=== PATIENT | male | born 1985 | race Caucasian/White ===

== ENCOUNTER 2016-12-18 23:08 | Emergency (ER) | payer SELFPAY ==
[2016-12-19 00:05] LABS: Basophils % (Auto) 0.9 % (0.0-1.8); Eosinophils % (Auto) 3.3 % (0.0-4.3); Hematocrit 43.3 % (35.5-45.6); Hemoglobin 15.3 gm/dl (11.8-15.2); Mean Corpuscular HGB Conc 35 % (32-34); Mean Corpuscular Hemoglobin 30 pg (28-32); Mean Corpuscular Volume 84 fl (84-94); Platelet Count 276 K/mm3 (140-440); Red Blood Count 5.13 M/mm3 (3.65-5.03); Red Cell Distribution Width 12.7 % (13.2-15.2); White Blood Count 10.7 K/mm3 (4.5-11.0)
[2016-12-19 00:17] LABS: Alanine Aminotransferase 175 units/L (7-56); Albumin 4.7 g/dL (3.9-5); Albumin/Globulin Ratio 1.3 %; Alkaline Phosphatase 90 units/L (35-129); Amylase 37 units/L (27-131); Anion Gap 22 mmol/L; BUN/Creatinine Ratio 11.11; Blood Urea Nitrogen 10 mg/dL (9-20); Calcium 9.9 mg/dL (8.4-10.2); Carbon Dioxide 22 mmol/L (22-30); Chloride 98.3 mmol/L (98-107); Glucose 165 mg/dL (75-100); Lipase 40 units/L (13-60); Potassium 3.7 mmol/L (3.6-5.0); Sodium 139 mmol/L (137-145); Total Protein 8.2 g/dL (6.3-8.2)
[2016-12-19 00:29] LABS: Bilirubin,Direct < 0.2 mg/dL (0-0.2)
[2016-12-19] MEDS ORDERED: NACL 0.9% 1000 ML 1,000 ML IV ONE (01:22)
[2016-12-19] MEDS ORDERED: TORADOL IV ONE (01:22)
[2016-12-19] MEDS ORDERED: ZOFRAN IV ONE (01:22)
[2016-12-19] MEDS ORDERED: DILAUDID IV ONE (01:22)
--- NOTE | 2016-12-19 01:44 | Emergency Department Report ---
ED Abdominal Pain HPI - General Chief Complaint: Abdominal Pain Stated Complaint: FLANK PAIN,VOMITING Time Seen by Provider: 12/19/16 01:18 Source: EMS Mode of arrival: Ambulatory Limitations: No Limitations - History of Present Illness Initial Comments: 31-year-old male with no significant past medical history presents to the hospital complaining of right flank pain that started at 4 PM. Pain was initially mild and intermittent but then intensified with associated vomiting. Patient complains of some mild discomfort with urination without hematuria. Denies history hypertension and kidney stones. Reports some "liver issues". No previous abdominal surgeries. - Related Data Home Medications Medication Instructions Recorded Confirmed Last Taken Azithromycin [Zithromax TAB] 500 mg PO QDAY 03/27/15 03/27/15 03/27/15 Meloxicam [Mobic] 7.5 mg PO QDAY 03/27/15 03/27/15 03/27/15 Previous Rx's Medication Instructions Recorded Last Taken Type Clindamycin [Clindamycin CAP] 300 mg PO Q8H #30 cap 03/27/15 Unknown Rx Ibuprofen [Motrin] 800 mg PO Q8HR PRN #60 tablet 03/27/15 Unknown Rx traMADol [Ultram] 50 mg PO Q6HR PRN #20 tablet 03/27/15 Unknown Rx HYDROcodone/APAP 5-325 [[place] 1 each PO Q6HR PRN #20 tablet 12/19/16 Unknown Rx 5/325] Ketorolac [Toradol] 10 mg PO Q6H PRN #20 tablet 12/19/16 Unknown Rx Ondansetron [Zofran Odt] 4 mg PO Q8HR PRN #20 tab.rapdis 12/19/16 Unknown Rx Tamsulosin [Flomax] 0.4 mg PO QDAY #7 cap 12/19/16 Unknown Rx Allergies Allergy/AdvReac Type Severity Reaction Status Date / Time No Known Allergies Allergy Unverified 03/24/15 21:46 ED Review of Systems ROS: Stated complaint: FLANK PAIN,VOMITING Other details as noted in HPI Comment: All other systems reviewed and negative Other: Constitutional: No fevers chills Eyes: No eye pain visual changes ENT: No ear pain or throat pain Neck: Denies pain Respiratory: Denies cough wheezing, sob Cardiovascular: Denies chest pain, palpitations, syncope GI: As per HPI : As per HPI Musculoskeletal: Radiates to the right flank Skin: Denies rash, lesions, erythema Neurologic: Denies headache, numbness, weakness Psychiatric: Denies suicidal ideation, hallucinations Hematological/lymphatic: Denies easy bruising, lymphadenopathy ED Past Medical Hx - Past Medical History Previous Medical History?: No - Surgical History Past Surgical History?: No - Social History Smoking Status: Never Smoker Substance Use Type: None - Medications Home Medications: Home Medications Medication Instructions Recorded Confirmed Last Taken Type Azithromycin [Zithromax TAB] 500 mg PO QDAY 03/27/15 03/27/15 03/27/15 History Clindamycin [Clindamycin CAP] 300 mg PO Q8H #30 cap 03/27/15 Unknown Rx Ibuprofen [Motrin] 800 mg PO Q8HR PRN #60 tablet 03/27/15 Unknown Rx Meloxicam [Mobic] 7.5 mg PO QDAY 03/27/15 03/27/15 03/27/15 History traMADol [Ultram] 50 mg PO Q6HR PRN #20 tablet 03/27/15 Unknown Rx HYDROcodone/APAP 5-325 [[place] 1 each PO Q6HR PRN #20 tablet 12/19/16 Unknown Rx 5/325] Ketorolac [Toradol] 10 mg PO Q6H PRN #20 tablet 12/19/16 Unknown Rx Ondansetron [Zofran Odt] 4 mg PO Q8HR PRN #20 tab.rapdis 12/19/16 Unknown Rx Tamsulosin [Flomax] 0.4 mg PO QDAY #7 cap 12/19/16 Unknown Rx ED Physical Exam - General Limitations: No Limitations - Other Other exam information: General: No limitations, patient is alert in no acute distress Head exam: Atraumatic, normocephalic Eyes exam: Normal appearance ENT: Moist mucous membrane, normal oropharynx Neck exam: Normal inspection, full range of motion, no meningismus nontender Respiratory exam: Clear to auscultation bilateral, no wheezes, rales, crackles Cardiovascular: Normal rate and rhythm, normal heart sounds Abdomen: Soft, nondistended, and nontender, with normal bowel sounds, no rebound, or guarding Extremity: Full range of motion normal inspection no deformity Back: Normal Inspection, full range of motion, no tenderness Neurologic: Alert, oriented x3, cranial nerves intact, no motor or sensory deficit Psychiatric: normal affect, normal mood Skin: Warm, dry, intact ED Course Vital Signs 12/18/16 12/19/16 12/19/16 23:12 01:30 02:01 Temperature 98.2 F 98.2 F Pulse Rate 56 L 84 Respiratory 18 16 20 Rate Blood Pressure 180/112 Blood Pressure 154/100 [Left] O2 Sat by Pulse 100 98 Oximetry 12/19/16 03:52 Temperature Pulse Rate 90 Respiratory 16 Rate Blood Pressure Blood Pressure 129/82 [Left] O2 Sat by Pulse 97 Oximetry - Reevaluation(s) Reevaluation #1: 12/19/16 01:44 Dilaudid, Toradol, normal saline, and Zofran ordered. Awaiting CT and UA Reevaluation #2: 12/19/16 03:40 Patient pain free with treatment and blood pressure improved. Patient without respiratory distress or tachypnea ED Medical Decision Making - Lab Data Result diagrams: 12/18/16 23:25 12/18/16 23:25 Lab Results 12/18/16 12/18/16 12/19/16 Range/Units 23:25 23:25 01:31 WBC 10.7 (4.5-11.0) K/mm3 RBC 5.13 H (3.65-5.03) M/mm3 Hgb 15.3 H (11.8-15.2) gm/dl Hct 43.3 (35.5-45.6) % MCV 84 (84-94) fl MCH 30 (28-32) pg MCHC 35 H (32-34) % RDW 12.7 L (13.2-15.2) % Plt Count 276 (140-440) K/mm3 Lymph % (Auto) 27.3 (13.4-35.0) % [place] % (Auto) 5.6 (0.0-7.3) % Eos % (Auto) 3.3 (0.0-4.3) % Baso % (Auto) 0.9 (0.0-1.8) % Lymph # 2.9 (1.2-5.4) K/mm3 [place] # 0.6 (0.0-0.8) K/mm3 Eos # 0.3 (0.0-0.4) K/mm3 Baso # 0.1 (0.0-0.1) K/mm3 Seg Neutrophils % 62.9 (40.0-70.0) % Seg Neutrophils # 6.7 (1.8-7.7) K/mm3 Sodium 139 (137-145) mmol/L Potassium 3.7 (3.6-5.0) mmol/L Chloride 98.3 (98-107) mmol/L Carbon Dioxide 22 (22-30) mmol/L Anion Gap 22 mmol/L BUN 10 (9-20) mg/dL Creatinine 0.9 (0.8-1.5) mg/dL Estimated GFR > 60 ml/min BUN/Creatinine Ratio 11.11 % Glucose 165 H (75-100) mg/dL Calcium 9.9 (8.4-10.2) mg/dL Total Bilirubin 0.40 (0.1-1.2) mg/dL Direct Bilirubin < 0.2 (0-0.2) mg/dL AST 99 H (5-40) units/L ALT 175 H (7-56) units/L Alkaline Phosphatase 90 (35-129) units/L Total Protein 8.2 (6.3-8.2) g/dL Albumin 4.7 (3.9-5) g/dL Albumin/Globulin Ratio 1.3 % Amylase 37 (27-131) units/L Lipase 40 (13-60) units/L Urine Color Yellow (Yellow) Urine Turbidity Clear (Clear) Urine pH 5.0 (5.0-7.0) Ur Specific [place] 1.015 (1.003-1.030) Urine Protein 100 mg/dl (Negative) mg/dL Urine Glucose (UA) Neg (Negative) mg/dL Urine Ketones Neg (Negative) mg/dL Urine Blood Sm (Negative) Urine Nitrite Neg (Negative) Urine Bilirubin Neg (Negative) Urine Urobilinogen < 2.0 (<2.0) mg/dL Ur Leukocyte Esterase Neg (Negative) Urine WBC (Auto) < 1.0 (0.0-6.0) /HPF Urine RBC (Auto) < 1.0 (0.0-6.0) /HPF - Radiology Data Radiology results: report reviewed CT abdomen and pelvis noncontrast: 4 mm stone right ureterovesical junction causing moderate hydronephrosis and hydroureter. Tiny stones in the left kidney without obstruction. Hemorrhagic cyst 9 mm in the left kidney. Umbilical hernia containing fat only. - Medical Decision Making Plan to discharge patient home with medications for kidney stone relief. Urology referral will be provided. Pt will be provided a copy of ct report - Differential Diagnosis cholecystitis, biliary colic, UTI, renal colic Critical Care Time: No Critical care attestation.: If time is entered above; I have spent that time in minutes in the direct care of this critically ill patient, excluding procedure time. ED Disposition Clinical Impression: Renal colic on right side, Renal stones Disposition: TO HOME OR SELFCARE Is pt being admited?: No Does the pt Need Aspirin: No Condition: Stable Instructions: Renal Colic (ED) Additional Instructions: Take the medication as prescribed. Follow-up with the urologist provided. Return if symptoms worsen Prescriptions: HYDROcodone/APAP 5-325 [[place] 5/325] 1 each PO Q6HR PRN #20 tablet PRN Reason: Pain Ketorolac [Toradol] 10 mg PO Q6H PRN #20 tablet PRN Reason: Pain Ondansetron [Zofran Odt] 4 mg PO Q8HR PRN #20 tab.rapdis PRN Reason: Nausea And Vomiting Tamsulosin [Flomax] 0.4 mg PO QDAY #7 cap Referrals: MIGDALIA HARRIS MD [Staff Physician] - 3-5 Days Time of Disposition: 03:43
[2016-12-19 02:28] LABS: Bilirubin,Urine NEG (Negative); Blood,Urine SM (Negative); Ketones,Urine NEG (Negative); Leukocyte Esterase,Urine NEG (Negative); Nitrite,Urine NEG (Negative); Urobilinogen,Urine < 2.0 mg/dL (<2.0)
[2016-12-19 02:31] LABS: RBC,Urine < 1.0 /HPF (0.0-6.0); WBC,Urine < 1.0 /HPF (0.0-6.0)
--- NOTE | 2016-12-19 03:07 | Cat Scan Report ---
FINAL REPORT PROCEDURE: CT ABDOMEN PELVIS WO CON TECHNIQUE: Computerized axial tomography of the abdomen and pelvis was performed without intravenous contrast. This study is performed without intravascular contrast material and its sensitivity for abdominal and pelvic pathology, including neoplasms, inflammation, abscess, free fluid, thrombosis, arterial dissection and infarction, is reduced compared with a contrast enhanced study. HISTORY: right flank pain, vomiting COMPARISON: No prior studies are available for comparison. FINDINGS: Visualized lower thorax: No significant abnormality. Liver: There is diffuse fatty infiltration of the liver. There is no liver mass. Spleen: Normal size and attenuation. Gallbladder and biliary system: Normal. Pancreas: Normal. Adrenals: Normal. Kidneys: There is a 4 millimeters stone at the right ureteral vesicle junction causing moderate right hydronephrosis and hydroureter. There are tiny stones in the left kidney without evidence of obstruction. There is a cortical density in the midpole of the left kidney measuring 9 millimeters suggesting hemorrhagic cyst.. GI tract: There is no bowel obstruction, colitis or enteritis. The appendix is normal.. Lymph nodes and mesentery: There are borderline prominent mesenteric and retroperitoneal lymph nodes which are nonspecific.. Vasculature: Normal. Bladder: Normal. Reproductive organs: Normal. Peritoneum: There is no ascites, free air, abscess or adenopathy.. Musculoskeletal structures: No significant abnormality. Other: There is an umbilical hernia containing fat only.. IMPRESSION: There is diffuse fatty infiltration of the liver. There is no liver mass. There is a 4 millimeters stone at the right ureteral vesicle junction causing moderate right hydronephrosis and hydroureter. There are tiny stones in the left kidney without evidence of obstruction. There is a cortical density in the midpole of the left kidney measuring 9 millimeters suggesting hemorrhagic cyst.. There is no bowel obstruction, colitis or enteritis. The appendix is normal.. There are borderline prominent mesenteric and retroperitoneal lymph nodes which are nonspecific.. There is no ascites, free air, abscess or adenopathy.. There is an umbilical hernia containing fat only.. .
[2016-12-19 03:52] VITALS: BP 129/82
== END 2016-12-19 04:00 | disposition home or self-care (01) ==
LOC: ED 23:08
DX: N20.0 Calculus of kidney (principal)
CPT/HCPCS: 36415; 74176; 80048; 80074; 81001; 82150; 83690; 85025; 96361; 96374; 96375; 99284; J1170; J1885; J2405; J7030